=== PATIENT | female | born 1985 | race African-American/Black ===

== ENCOUNTER 2017-07-24 11:27 | Emergency (ER) | payer OTHER ==
[~2017-07-24] VITALS: Ht 165.1 cm; Wt 68.0 kg
--- NOTE | 2017-07-24 12:09 | Emergency Room Report ---
History of Present Illness General Chief Complaint: Vomiting Source: EMS Present Illness HPI 32-year-old female presents to emergency department complaining of acute onset of vomiting times one hour. Patient denies nausea she denies abdominal pain, denies fevers or chills. Patient denies constipation or diarrhea. Patient denies states she just began her period today. Patient denies recent fall or trauma. Denies recent travel. Patient denies blood in the vomit or dark tarry stools. She states her last bowel movement was this morning. Denies CP, Palpitations, LOC, AMS, dizziness, Changes in Vision, Sensation, paresthesias, or a sudden severe headache. Allergies: Coded Allergies: CODEINE (Verified Allergy, Unknown, 07/24/17) Patient History Past Medical History: see triage record Past Surgical History: none Pertinent Family History: none Now: No Immunizations: UTD Reviewed Nursing Documentation: PMH: Agreed, PSxH: Agreed Nursing Documentation-PMH Past Medical History: No History, Except For History Of Psychiatric Problem: Yes - DEPRESSION, ANXIETY Review of Systems All Other Systems: negative except mentioned in HPI Physical Exam Vital Signs Date Time Temp Pulse Resp B/P (MAP) Pulse Ox O2 Delivery O2 Flow Rate FiO2 07/24/17 11:11 97.9 71 20 124/76 100 Room Air Sp02 EP Interpretation: reviewed, normal General Appearance: no apparent distress, alert, GCS 15, non-toxic Head: normocephalic, atraumatic Eyes: bilateral eye normal inspection, bilateral eye PERRL ENT: hearing grossly normal, normal voice Neck: full range of motion Respiratory: lungs clear, normal breath sounds, speaking full sentences Cardiovascular #1: regular rate, rhythm Gastrointestinal: normal bowel sounds, non tender, soft, no guarding, no rebound Rectal: deferred Genitourinary: normal inspection, no CVA tenderness Musculoskeletal: back normal, gait/station normal, normal range of motion Neurologic: alert, oriented x3, responsive, motor strength/tone normal, sensory intact, normal gait, speech normal Psychiatric: judgement/insight normal, memory normal, mood/affect normal Skin: normal color, no rash, warm/dry, well hydrated Medical Decision Making PA Attestation Dr. Reilly is my supervising Physician whom patient management has been discussed with. Diagnostic Impression: Primary Impression: Vomiting Qualified Codes: R11.11 - Vomiting without nausea Additional Impression: Gastritis Qualified Codes: K29.70 - Gastritis, unspecified, without bleeding ER Course 32-year-old female presents to emergency department complaining of acute onset of vomiting times one hour. Patient denies nausea she denies abdominal pain, denies fevers or chills. Patient denies constipation or diarrhea. Patient denies states she just began her period today. Patient denies recent fall or trauma. Denies recent travel. Patient denies blood in the vomit or dark tarry stools. She states her last bowel movement was this morning. Denies CP, Palpitations, LOC, AMS, dizziness, Changes in Vision, Sensation, paresthesias, or a sudden severe headache. Ddx considered but are not limited to GE, colitis, acute appy, SBO, * Vital signs: pt. is afebrile, H&PE are most consistent with Gastritis, no evidence of dehydration ORDERS: -UA: unremarkable, RBC's and occult blood consistent with menstrual cycle. -Urine Hcg: negative ED INTERVENTIONS: 4mg PO zofran for nausea. -Pt able to tolerate oral fluid challenge. DISCHARGE: At this time pt. is stable for d/c to home. Will provide printed patient care instructions, and any necessary prescriptions. Care plan and follow up instructions have been discussed with the patient prior to discharge. Labs Test 07/24/17 12:25 Urine Color Yellow Urine Appearance Turbid Urine pH 8 (4.5-8.0) Urine Specific [place] 1.010 (1.005-1.035) Urine Protein 1+ (NEGATIVE) Urine Glucose (UA) Negative (NEGATIVE) Urine Ketones Negative (NEGATIVE) Urine Occult Blood 5+ (NEGATIVE) Urine Nitrite Negative (NEGATIVE) Urine Bilirubin Negative (NEGATIVE) Urine Urobilinogen 1 MG/DL (0.0-1.0) Urine Leukocyte Esterase 1+ (NEGATIVE) Urine RBC Tntc /HPF (0 - 2) Urine WBC 2-4 /HPF (0 - 2) Urine Squamous Epithelial Cells Few /LPF (NONE/OCC) Urine Bacteria Few /HPF (NONE) Urine HCG, Qualitative Negative Last Vital Signs Date Time Temp Pulse Resp B/P (MAP) Pulse Ox O2 Delivery O2 Flow Rate FiO2 07/24/17 11:11 97.9 71 20 124/76 100 Room Air Disposition: HOME, SELF-CARE Condition: Stable Scripts Ranitidine Hcl* (ZANTAC*) 150 Mg Tablet 150 MG ORAL TWICE A DAY for 7 Days, #14 TAB Prov: Gay Duenas 07/24/17 Ondansetron Odt* (ZOFRAN ODT*) 4 Mg Tab.rapdis 4 MG ORAL Q6H Y for Nausea & Vomiting, #30 TAB Prov: Gay Duenas 07/24/17 Patient Instructions: Nausea and Vomiting, Adult Additional Instructions: Take medications as directed. Follow up with a Primary Care Provider in 3-5 days, even if your symptoms have resolved. --Please review list of primary care clinics, if you do not already have a primary care provider Return sooner to ED if new symptoms occur, or current symptoms become worse. - Please note that this Emergency Department Report was dictated using [employer]lickslidegeneral service officer technology software, occasionally this can lead to erroneous entry secondary to interpretation by the dictation equipment. Gay Duenas Jul 24, 2017 12:09
[2017-07-24] MEDS ORDERED: ZANTAC150 MG ORAL (13:18)
[2017-07-24] MEDS ORDERED: ZOFRAN ODT4 MG ORAL (13:18)
[2017-07-24 13:29] LABS: KETONES,URINE NEGATIVE (NEGATIVE); PH,URINE 8 (4.5-8.0); PROTEIN,URINE 1+ (NEGATIVE)
[2017-07-24 13:30] LABS: LEUKOCYTE ESTERASE ,URINE 1+ (NEGATIVE); NITRITE,URINE NEGATIVE (NEGATIVE); UROBILINOGEN,URINE 1 MG/DL (0.0-1.0)
[2017-07-24 13:33] LABS: APPEARANCE,URINE TURBID
[2017-07-24 13:48] LABS: BACTERIA,URINE FEW /HPF; RBC,URINE TNTC /HPF (0 - 2); SQUAMOUS EPITHELIAL CELL,UR FEW /LPF (NONE/OCC)
[2017-07-24 14:10] VITALS: BP 111/70
== END 2017-07-24 14:10 | disposition home or self-care (01) ==
LOC: EDBD 11:27 → EMR 13:04
DX: R11.11 Vomiting without nausea (principal); K29.70 Gastritis, unspecified, without bleeding; Z88.6 Allergy status to analgesic agent
CPT/HCPCS: 81003; 81025; 99284